=== PATIENT | male | born 1995 | race Hispanic/Latino ===

== ENCOUNTER 2021-04-14 17:08 | Emergency (ER) | payer OTHER, SELFPAY ==
[2021-04-14 17:39] VITALS: BP 134/80; PULSE 87; RESP 18; TEMP 36.9; O2SAT 100
--- NOTE | 2021-04-14 17:48 | ED.URI ---
HPI - URI/Sore Throat General Chief Complaint: Upper Respiratory Infection Stated Complaint: Cough,sorethroat,nasal congestion Time Seen by Provider: 04/14/21 17:50 Source: patient and RN notes reviewed Mode of arrival: ambulatory Limitations: no limitations History of Present Illness HPI Narrative: Hussein 25-year-old male patient who ambulated into the [facility]. Patient has had cold-like symptoms including sinus congestion runny nose sore throat postnasal drainage and cough for the last 3 weeks. Patient was Covid tested and it was negative last week. Patient has been taking DayQuil and NyQuil with minimal relief. MD elicited complaint: nasal congestion and sinus pain Related Data Allergies Allergy/AdvReac Type Severity Reaction Status Date / Time No Known Allergies Allergy Verified 04/14/21 17:57 Review of Systems Review of Systems: CONSTITUTIONAL: Denies body aches, fever, chills, or sweats. EYES: Denies visual changes, redness, or discharge. ENT: + rhinorrhea, +congestion,+ sore throat, +otalgia. CARDIOVASCULAR: Denies chest pain, palpitations, or edema. RESPIRATORY: +cough denies dyspnea. GASTROINTESTINAL: Denies abdominal pain, nausea, vomiting, or diarrhea. GENITOURINARY: Denies dysuria or hematuria. SKIN: Denies rash, itching, or wounds. MUSCULOSKELETAL: Denies back pain, joint pain, or myalgia. NEUROLOGIC: Denies headache, numbness, tingling, or weakness. PSYCH: Denies depression or anxiety. All systems reviewed & are unremarkable except as noted in HPI and below Exam Narrative: GENERAL: Well-appearing, well-nourished, and in no acute distress. HEAD: Normocephalic, atraumatic. EYES: EOMI. No redness or drainage. Conjunctivae normal. ENT: Mucous membranes pink and dry. Nasal membranes are erythemic. No rhinorrhea. TMs opaque bilaterally with moderate bulging, no erythema noted posterior pharynx is erythemic with minimal edema with moderate amount of clear postnasal drainage. Uvula midline.Right maxillary sinus pain with palpation. NECK: Normal AROM. Supple. Left anterior cervical lymphadenopathy. CHEST: No respiratory distress. Clear to auscultation. MUSCULOSKELETAL: No bony tenderness. EXTREMITIES: Normal range of motion. No edema. SKIN: Warm, dry, no rash. Capillary refill normal. Normal skin turgor. NEURO: No focal deficits. Alert and oriented x3. Gait steady. PSYCH: Normal affect. No signs of depression or anxiety. Course Vital Signs Vital signs: Vital Signs Temperature 36.9 C 04/14/21 17:39 Pulse Rate 87 04/14/21 17:39 Respiratory Rate 18 04/14/21 17:39 Blood Pressure 134/80 04/14/21 17:39 Pulse Oximetry 100 04/14/21 17:39 Temperature 36.9 C 04/14/21 17:39 Pulse Rate 87 04/14/21 17:39 Respiratory Rate 18 04/14/21 17:39 Blood Pressure 134/80 04/14/21 17:39 Pulse Oximetry 100 04/14/21 17:39 Reviewed. Pt has been instructed to follow up with his PCP regarding his elevated blood pressure today. MDM - URI/Sore Throat MDM Narrative Medical decision making narrative: Patient has had sinus congestion and pain for greater than 3 weeks. Patient has tried [id number] medications such as DayQuil and NyQuil without relief. Patient will be treated for a sinus infection. Patient will be treated with Augmentin and prednisone. Patient will follow up with his primary care for physician in 7 to 10 days for continued symptoms he will follow up sooner for increased symptoms[place] Differential Diagnosis Differential diagnosis: Likely upper respiratory infection, otitis media, sinusitis and bronchitis Medical Records Attestation: I reviewed the patient's medical records. Critical Care Time Critical Care Time Critical Care Time: No Discharge Plan Discharge Clinical Impression: Sinusitis Qualifiers: Sinusitis location: maxillary Chronicity: acute Recurrence: non-recurrent Qualified Code(s): J01.00 - Acute maxilla
== END 2021-04-14 18:17 | disposition home or self-care (01) ==
PROVIDERS: Emergency Provider Nurse Practitioner Family
DX: J01.00 Acute maxillary sinusitis, unspecified (principal)
CPT/HCPCS: 99203; G0463

== ENCOUNTER 2021-05-16 15:25 | Emergency (ER) | payer OTHER, SELFPAY ==
[2021-05-16 15:36] VITALS: BP 152/76; PULSE 88; RESP 18; TEMP 36.6; O2SAT 100
--- NOTE | 2021-05-16 15:41 | ED.MALEGU ---
HPI - Male Genitourinary General Chief complaint: Urogenital-Male Stated complaint: discharge,painful urination Time Seen by Provider: 05/16/21 15:41 Source: patient, RN notes reviewed and old records reviewed Mode of arrival: ambulatory Limitations: no limitations History of Present Illness HPI Narrative: 25-year-old male presents to the [facility] with complaints of penile discharge and painful urination for the last 5 days. Describes the discharge as clear. Denies having unprotected sex. No testicular pains. No open sores. States he had gonorrhea couple years ago and states it does not feel the same. Denies abdominal pain or chest pain. No fevers. Denies nausea vomiting or diarrhea. Related Data Allergies Allergy/AdvReac Type Severity Reaction Status Date / Time No Known Allergies Allergy Verified 05/16/21 15:49 Review of Systems Review of Systems: All systems reviewed & are unremarkable except as noted in HPI and below Constitutional: Constitutional: Reports no additional constitutional complaints, Denies chills and Denies fever(s) Eyes: Eyes: Reports no additional eye complaints ENT: Reports system reviewed and no additional complaints, except as documented Cardiovascular: Cardiovascular: Reports no additional cardiovascular complaints Respiratory: Respiratory: Reports no additional respiratory complaints, Denies cough and Denies dyspnea Gastrointestinal: Gastrointestinal: Reports no additional gastrointestinal complaints, Denies abdominal pain, Denies diarrhea, Denies nausea and Denies vomiting Genitourinary: Genitourinary: Reports as per HPI, Denies genital lesions, Reports dysuria, Reports penile discharge, Denies testicular pain and Denies urinary incontinence Musculoskeletal: Musculoskeletal: Reports no additional musculoskeletal complaints Integumentary/Breasts: Skin/Breast: Reports system reviewed and no additional complaints, except as docu Neurologic: Reports system reviewed and no additional complaints, except as documented Psychiatric: Psychiatric: Reports no additional psychiatric complaints Allergic/Immunologic: Allergic/Immunologic: Reports no additional allergic/immunologic complaints PMFSH Past Medical History Medical History (Updated 05/16/21 @ 16:02 by Amaris Nolasco) No significant medical problems Surgical History Surgical History (Updated 05/16/21 @ 16:02 by Amaris Nolasco) No significant past surgical history Social History Social History (Updated 05/16/21 @ 16:03 by Amaris Nolasco) Living arrangements: with family Occupation/Education: occupation Additional occupation/education comments: [employer] Gender identity (if verbalized by the patient): Male Comments At the time of my signature, I reviewed and agree with the nursing past medical, surgical, social, and family history. There is no relevant family history pertinent to the patient complaint. Exam Const: General: healthy appearing, no acute distress and alert Nutritional Appearance: well nourished Orientation/consciousness: patient oriented x3 Limitations: no limitations HENMT: Head: normal to inspection General nose exam: Normal external nose present Eyes: Pupils: Equal, round and reactive pupils present Neck: Neck: normal visual inspection, no lymphadenopathy and no meningeal signs Chest: Chest palpation & inspection: normal inspection of the chest Resp: Effort & Inspection: normal respiratory effort and no use of accessory muscles Auscultation: clear to auscultation bilaterally, no crackles, no rales, no rhonchi and no wheezes Cardio: Rate: regular rate Rhythm: regular rhythm GI: GI Palp: Yes Soft to palpation, No Tenderness to palpation present (GI), No Guarding due to palpation present (GI) and No Rebound tenderness present : Male General Exam: Yes normal external exam and No erythema Penis: Yes uncircumcised and No ecchymosis Scrotum: scrotum normal, no ecchymosis and no scrotal swelling T
[2021-05-16] MEDS: cefTRIAXone 500 MG, LIDOCAINE HCL 1% LOCAL INJ 1 ML IM (16:00)
== END 2021-05-16 16:17 | disposition home or self-care (01) ==
PROVIDERS: Emergency Provider Nurse Practitioner
DX: R36.9 Urethral discharge, unspecified (principal); R30.0 Dysuria
CPT/HCPCS: 81003; 87491; 87591; 87661; 96372; 99213; G0463; J0696

== ENCOUNTER 2021-09-23 10:35 | Emergency (ER) | payer OTHER, SELFPAY ==
[2021-09-23 10:54] VITALS: BP 132/73; PULSE 83; RESP 18; TEMP 36.5; O2SAT 100
--- NOTE | 2021-09-23 11:36 | ED.URI ---
HPI - URI/Sore Throat General Chief Complaint: Upper Respiratory Infection Stated Complaint: sorethroat,cough,congestion Source: patient Mode of arrival: ambulatory Limitations: no limitations History of Present Illness HPI Narrative: 26-year-old male presents to urgent care with complaints of sore throat, productive cough of yellow-colored phlegm, runny nose and congestion for the past 2 days. Patient has been taking [id number] Mucinex and NyQuil with minimal relief. Patient denies fever, bodies, chills, shortness of breath, wheezing, nausea, vomiting or diarrhea. Patient denies sick contacts. Patient is a non-smoker. Patient reports that he did recently travel to [place]. MD elicited complaint: cough, rhinorrhea and nasal congestion Onset (ago): day(s) (2) Able to tolerate fluids by mouth: Yes Treatments prior to arrival: cold medicine Related Data Allergies Allergy/AdvReac Type Severity Reaction Status Date / Time No Known Allergies Allergy Verified 09/23/21 11:27 Review of Systems Constitutional: Constitutional: Denies chills, Denies fever(s) and Denies weakness ENT: Denies dizziness, Reports nasal congestion and Reports sore throat Cardiovascular: Cardiovascular: Denies chest pain Respiratory: Respiratory: Reports cough, Denies dyspnea and Denies wheezing Gastrointestinal: Gastrointestinal: Denies diarrhea, Denies nausea and Denies vomiting Integumentary/Breasts: Skin/Breast: Denies rash Neurologic: Denies dizziness PMFSH Past Medical History Medical History No significant medical problems Surgical History Surgical History No significant past surgical history Social History Social History Additional occupation/education comments: [employer] Gender identity (if verbalized by the patient): Male Comments At time of signature, I agree with nursing past medical, surgical, social and family history. There is no relevant family history pertinent to the presenting complaint. Exam Const: General: no acute distress and alert Nutritional Appearance: well nourished Orientation/consciousness: patient oriented x3 HENMT: Ears: external ears normal and TM's normal bilaterally General nose exam: Nasal discharge present purulent bilateral Face and sinus: sinuses nontender Mouth: Yes moist mucous membranes Throat: uvula midline Other: Moderate amount of nasal congestion noted Neck: Neck: normal visual inspection Resp: Effort & Inspection: normal respiratory effort and not tachypneic Auscultation: clear to auscultation bilaterally Cardio: Rate: regular rate, not bradycardic and not tachycardic Rhythm: regular rhythm Skin: General skin exam: normal color, no jaundice and no pallor Rashes: no rashes Wounds: no wounds Neuro: General: patient oriented x3 and moves all extremities Psych: Appearance: grossly normal Mental Status: mental status grossly normal Affect: normal affect Attitude: cooperative Thought content: Yes Normal thought content present Course Course Level of Care: Express Care Visit Vital Signs Vital signs: Vital Signs Temperature 36.5 C 09/23/21 10:54 Pulse Rate 83 09/23/21 10:54 Respiratory Rate 18 09/23/21 10:54 Blood Pressure 132/73 09/23/21 10:54 Pulse Oximetry 100 09/23/21 10:54 Temperature 36.5 C 09/23/21 10:54 Pulse Rate 83 09/23/21 10:54 Respiratory Rate 18 09/23/21 10:54 Blood Pressure 132/73 09/23/21 10:54 Pulse Oximetry 100 09/23/21 10:54 MDM - URI/Sore Throat MDM Narrative Medical decision making narrative: Patient agrees to take medications as prescribed. Patient agrees to take Claritin and Flonase daily and will take Tessalon as needed for cough. Work excuse provided for patient Differential Diagnosis Differential diagnosis: Likely otitis media, sinusitis an
== END 2021-09-23 11:43 | disposition home or self-care (01) ==
PROVIDERS: Emergency Provider Nurse Practitioner Family
DX: B34.9 Viral infection, unspecified (principal)
CPT/HCPCS: 87081; 87880; 99213; G0463

== ENCOUNTER 2021-10-06 10:02 | Emergency (ER) | payer OTHER, SELFPAY ==
--- NOTE | 2021-10-06 10:09 | ED.EXTPRO ---
HPI - Extremity Problem General Chief complaint: Extremity Problem,Nontraumatic Stated complaint: Rt Great Toe Pain Time Seen by Provider: 10/06/21 10:08 Source: patient, RN notes reviewed and old records reviewed Mode of arrival: ambulatory Limitations: no limitations History of Present Illness HPI Narrative: 26-year-old male presents to the [facility] with complaints of right great toe nail discoloration and bumpy. Patient states is been going on for approximately 3 months, increased discomfort over the last 2 weeks. Reports calling his primary care provider was referred to the [facility]. No treatment prior to arrival. Full range of motion. Denies any trauma. MD Complaint: extremity pain Related Data Allergies Allergy/AdvReac Type Severity Reaction Status Date / Time No Known Allergies Allergy Verified 10/06/21 10:06 Review of Systems Review of Systems: All systems reviewed & are unremarkable except as noted in HPI and below Constitutional: Constitutional: Reports no additional constitutional complaints, Denies chills and Denies fever(s) Eyes: Eyes: Reports no additional eye complaints ENT: Reports system reviewed and no additional complaints, except as documented Cardiovascular: Cardiovascular: Reports no additional cardiovascular complaints Respiratory: Respiratory: Reports no additional respiratory complaints Gastrointestinal: Gastrointestinal: Reports no additional gastrointestinal complaints Musculoskeletal: Musculoskeletal: Reports no additional musculoskeletal complaints Integumentary/Breasts: Skin/Breast: Reports as per HPI Comments: right toe nail white and bumpy Neurologic: Reports system reviewed and no additional complaints, except as documented Psychiatric: Psychiatric: Reports no additional psychiatric complaints Allergic/Immunologic: Allergic/Immunologic: Reports no additional allergic/immunologic complaints PMFSH Past Medical History Medical History No significant medical problems Surgical History Surgical History No significant past surgical history Social History Social History Additional occupation/education comments: [employer] Gender identity (if verbalized by the patient): Male Comments At the time of my signature, I reviewed and agree with the nursing past medical, surgical, social, and family history. There is no relevant family history pertinent to the patient complaint. Exam Const: General: healthy appearing, no acute distress and alert Nutritional Appearance: well nourished Orientation/consciousness: patient oriented x3 Limitations: no limitations HENMT: Head: normal to inspection Ears: external ears normal Eyes: Pupils: Equal, round and reactive pupils present Neck: Neck: normal visual inspection, no lymphadenopathy and no meningeal signs Chest: Chest palpation & inspection: normal inspection of the chest Resp: Effort & Inspection: normal respiratory effort and no use of accessory muscles Auscultation: clear to auscultation bilaterally, no crackles, no rales, no rhonchi and no wheezes Cardio: Rate: regular rate Rhythm: regular rhythm GI: GI Palp: Yes Soft to palpation and No Tenderness to palpation present (GI) : General: Yes no CVA tenderness Back/Spine/Pelvis: Back: no CVA tenderness Skin: General skin exam: normal color Rashes: no rashes Wounds: no wounds Nails: discolored and pitting Other: Thickened, white streaks, no longer smooth, right great toe. No surrounding cellulitic changes Neuro: General: patient oriented x3, moves all extremities, no meningeal signs and no focal motor deficits Cranial nerves: Yes Equal, round and reactive pupils present Speech: normal speech Gait exam (Neuro): Normal gait present Extrem: General: normal to inspection Psych: Appearance: grossly norm
[2021-10-06 10:10] VITALS: BP 119/78; PULSE 66; RESP 20; TEMP 36.4; O2SAT 100
== END 2021-10-06 10:28 | disposition home or self-care (01) ==
PROVIDERS: Emergency Provider Nurse Practitioner
DX: B35.1 Tinea unguium (principal)
CPT/HCPCS: 99213; G0463